=== PATIENT | male | born 1980 | race Caucasian/White ===

== ENCOUNTER 2016-09-29 09:57 | Emergency (ER) | payer BC ==
[~2016-09-29] VITALS: Ht 182.9 cm; Wt 78.2 kg
[2016-09-29 10:03] VITALS: BP 117/74; PULSE 64; RESP 16; O2SAT 97
[2016-09-29] MEDS ORDERED: CLON.5 PO (11:05)
[2016-09-29] MEDS ORDERED: MONT10TA2 PO (11:05)
[2016-09-29] MEDS ORDERED: BREX1TAB3 PO (11:05)
[2016-09-29] MEDS ORDERED: VORT1TAB3 PO (11:05)
[2016-09-29] MEDS ORDERED: CELE20TA PO (11:05)
--- NOTE | 2016-09-29 11:37 | PD ---
HPI Chief Complaint: Anxiety Time Seen by Provider: 11:05 Travel History International Travel<30 days: No Contact w/Intl Traveler<30days: No Traveled to known affect area: No History of Present Illness HPI 35-year-old male presents emergency department complaining of increased anxiety symptoms and feeling poorly. He's been titrating off his Celexa, is on Trintellix (a newer SSRI), and has been recently increasing his Rexulti (2nd generation antipsychotic). He states he's been having some increased anxiety symptoms. He also has been feeling slightly off, almost disoriented after playing soccer last week. He's been under more stress as he is vacationing here visiting with his family. He called his psychiatrist in [place] where he is from but they've not gotten back to them yet. He came in today because he says been feeling off is not sure what to do. History Past Medical History Narrative Medical Generalized anxiety with panic symptoms Tetanus Vaccination: Unknown Influenza Vaccination: Yes Social History Alcohol Use: Yes (Occ.) Tobacco Use: No Allergies-Medications (Allergen,Severity, Reaction): Coded Allergies: Codeine (Verified Allergy, Severe, rash, 09/29/16) Reported Meds & Prescriptions Reported Meds & Active Scripts Active Reported Klonopin (Clonazepam) 0.5 Mg Tab 0.5 Mg PO BID PRN Singulair (Montelukast Sodium) 10 Mg Tab 10 Mg PO HS Trintellix (Vortioxetine) 20 Mg Tab 20 Mg PO DAILY Rexulti (Brexpiprazole) 1 Mg Tab 1 Mg PO DAILY Celexa (Citalopram Hydrobromide) 20 Mg Tab 25 Mg PO DAILY Review of Systems Except as stated in HPI: all other systems reviewed are Neg Physical Exam Narrative GENERAL: Well-appearing 35-year-old man, no acute distress. SKIN: Warm and dry. CARDIOVASCULAR: Warm and well perfused. RESPIRATORY: Normal rate and effort. MUSCULOSKELETAL: No obvious deformities NEUROLOGICAL: Awake and alert. No gross deficits. Psychiatric: Generally well-appearing, mildly anxious. Data Data Last Documented VS Vital Signs Date Time Temp Pulse Resp B/P Pulse Ox O2 Delivery O2 Flow Rate FiO2 09/29/16 10:03 64 16 117/74 97 MDM Medical Decision Making Medical Screen Exam Complete: Yes Emergency Medical Condition: Yes Differential Diagnosis Adverse medication effect, anxiety, other Narrative Course Medical decision making 35-year-old man with generalized anxiety, and feeling sort of out of it since he increased his antipsychotic. Probably a medication effect. Is been 3 weeks now since he increased it. He has appointment with his psychiatrist on Monday. I encouraged him to continue his medications as prescribed until he sees a psychiatrist. If he finds his symptoms unbearable he can drop down back to 0.5 mg on his Rexulti. Diagnosis Primary Impression: Adverse effects of medication Qualified Code: T88.7XXA - Adverse effects of medication, initial encounter Additional Impression: Anxiety Additional Instructions: Follow-up with your psychiatrist on Monday as scheduled. Continue medications as prescribed if possible. If you finds symptoms too bothersome, decrease your Rexutli back to 0.5 mg until you see your psychiatrist. Return to the emergency department for any new or worsening symptoms. Med/Other Pt SpecificInfo: No Change to Meds Disposition: 01 DISCHARGE HOME Condition: Stable Alexandru Mcgee MD Sep 29, 2016 11:37
== END 2016-09-29 11:40 | disposition home or self-care (01) ==
LOC: PHED 09:57 → PHEFT 11:40
DX: F41.9 Anxiety disorder, unspecified (principal); T43.295A Adverse effect of other antidepressants, initial encounter
CPT/HCPCS: 99283